=== PATIENT | male | born 1950 | race Caucasian/White ===

== ENCOUNTER 2021-03-16 13:38 | Emergency (ER) | payer MEDICARE ==
[~2021-03-16] VITALS: Ht 154.9 cm; Wt 63.0 kg
[2021-03-16 13:42] VITALS: BP 123/80
[2021-03-16 15:12] LABS: BASOPHILS % 1.2 % (0.0-2.0); EOSINOPHILS % 3.6 % (0.0-5.0); HEMATOCRIT. 40.3 % (42.0-52.0); HEMOGLOBIN. 13.7 g/dL (14.0-18.0); MEAN CORPUSCULAR HEMOGLOBIN 32.4 pg (28.0-32.0); MEAN CORPUSCULAR VOLUME 95.1 fL (80.0-94.0); MEAN PLATELET VOLUME 9.1 fl (7.4-10.4); MONOCYTES % 8.4 % (2.0-8.0); NEUTROPHILS % 59.8 % (40.0-76.0); PLATELET 259 x1000/uL (130-400); RED BLOOD CELL COUNT 4.24 mill/uL (4.7-6.1)
[2021-03-16 15:13] LABS: CHLORIDE 107 mEq/L (98-107)
[2021-03-16 15:23] LABS: T4 FREE 0.99 ng/dL (0.76-1.46)
== END 2021-03-16 16:35 | disposition home or self-care (01) ==
LOC: ER 13:38
DX: R07.0 Pain in throat (principal)
CPT/HCPCS: 36415; 80048; 84439; 84443; 85025; 99283